=== PATIENT | male | born 2000 | race Two or more races ===

== ENCOUNTER 2025-05-16 07:05 | Emergency (ER) | payer OTHER ==
[~2025-05-16] VITALS: Ht 174 cm; Wt 60.3 kg
[2025-05-16] MEDS ORDERED: ONDANSETRON HCL 2 MG/ML VIAL IV STA (08:22)
[2025-05-16] MEDS ORDERED: FAMOTIDINE/PF 20 MG/2 ML VIAL IV STA (08:22)
[2025-05-16] MEDS ORDERED: DIPHENHYDRAMINE HCL 50 MG/ML VIAL 1ML IV STA (08:22)
[2025-05-16] MEDS ORDERED: 0.9 % SODIUM CHLORIDE 1,000 ML IV STA (08:22)
[2025-05-16 08:54] LABS: BASO % 0.6 % (0.1-1.2); EOS # 0.01 (0.04-0.54); EOS % 0.1 % (0.7-7.0); LYMPH # 0.36 (1.18-3.74); LYMPH % 4.6 % (19.3-53.1); MEAN PLATELET VOLUME 9.60 fl (9.4-12.4); MONO # 0.63 (0.24-0.82); MONO % 8.0 % (4.7-12.5); NEUT # 6.78 (1.56-6.13); NEUT % 86.4 % (34.0-71.1); RED CELL DISTRIBUTION WIDTH 12.5 % (11.6-14.4)
[2025-05-16 09:02] LABS: ERYTHROCYTE SEDIMENTATION RATE 7 mm/hr (0-15)
[2025-05-16 09:27] LABS: ALT/SGPT 50.0 U/L (12-78); AST/SGOT 32.0 U/L (15-37); BILIRUBIN TOTAL 0.89 mg/dL (0.3-1.2); BUN CREA RATIO 13.0 (7.0-25.0); CREATININE SERUM 0.7 mg/dL (0.70-1.30); GFR 139.75; GLOBULINA 3.5 G/DL (2.4-3.5); GLUCOSE FASTING 107.0 mg/dL (65-100); OSMOLALITY SERUM 271.0 MOSM/KG (275-295)
[2025-05-16 10:11] LABS: COVID-19 AG NEGATIVE (NEGATIVE)
== END 2025-05-16 12:24 | disposition home or self-care (01) ==
LOC: ER 07:06
PROVIDERS: Physician Assistant Medical
DX: B34.9 Viral infection, unspecified (principal); J10.1 Influenza due to other identified influenza virus with other respiratory manifestations; R50.9 Fever, unspecified; R51.9 Headache, unspecified; R11.0 Nausea; R05.8 Other specified cough; Z20.822 Contact with and (suspected) exposure to COVID-19